=== PATIENT | female | born 1950 | race African-American/Black ===

== ENCOUNTER 2019-03-16 16:20 | Emergency (ER) | payer OTHER, MEDICAID ==
[~2019-03-16] VITALS: Wt 48.8 kg
[2019-03-16] MEDS ORDERED: KETOROLAC 30 MG INJ IM STA (17:17)
[2019-03-16] MEDS ORDERED: traMADol 50 MG TAB PO ONE ×2 (17:30→19:00)
[2019-03-16] MEDS ORDERED: CYCLOBENZAPRINE 10 MG TAB PO ONE (17:30)
[2019-03-16] MEDS ORDERED: TRAM50TA2 PO (19:12)
[2019-03-16] MEDS ORDERED: CYCL10TA7 PO (19:12)
[2019-03-16] MEDS ORDERED: NAPR275T83 PO (19:12)
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
[2019-03-16 20:26] VITALS: BP 145/83; PULSE 78; RESP 16
== END 2019-03-16 20:27 | disposition home or self-care (01) ==
LOC: FTE 16:20
DX: M54.5 Low back pain (principal); M25.552 Pain in left hip; M79.10 Myalgia, unspecified site
CPT/HCPCS: 72100; 73510; 96372; 99284; J1885